=== PATIENT | female | born 1970 | race Caucasian/White ===

== ENCOUNTER → 2016-11-26 | Outpatient (CLI) | payer BC, SELFPAY ==
[~2016-11-26] MED LIST: MOTRIN-DPS400 MG PO; PERCOCET 5 DPS1 TAB PO; SENOKOT S1 TAB PO
== END | disposition home or self-care (01) ==
LOC: PTH.S 08:57
DX: Z01.818 Encounter for other preprocedural examination (principal)

== ENCOUNTER 2016-12-01 05:38 | Observation (INO) | payer BC, SELFPAY ==
[~2016-12-01] VITALS: Ht 154.9 cm; Wt 64.6 kg
[2016-12-03] MEDS ORDERED: SENOKOT S1 TAB PO (10:56)
[2016-12-03] MEDS ORDERED: PERCOCET 5 DPS1 TAB PO (10:56)
[2016-12-03] MEDS ORDERED: MOTRIN-DPS400 MG PO (10:56)
--- NOTE | 2016-12-16 12:52 | OR ---
ADMIT: 12/01/2016 RM/LOC: [address] [facility] MR#: [id number] [address] [id number] [address] [place] [address] Operative/Delivery Room Report SEX: F AGE: 46 : 1970 SURGERY DATE: 12/01/2016 SURGEON: Yordan Jackson MD MATE FOURTH: Dorota Andrew MD PROCEDURE PERFORMED: Vaginal hysterectomy with enterocele obliteration and bilateral salpingo-oophorectomy vaginally. 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 DESCRIPTION OF PROCEDURE: The patient was taken to the operating room under general anesthesia, prepped and draped in usual manner. Placed in pigtail stirrups. Bladder was drained with a Sparks catheter. The cervix was grasped with Almanza tenaculum and noted to pull down to beyond the introitus with ease. Circular incision made around the cervix with bladder reflection entering into the posterior cul-de-sac. Uterosacral ligaments were cross clamped, incised, and ligated followed by cross-clamping the cardinal ligament area with incision ligation. Must mention, there was a slight tenting upward in a V-shape pattern when cutting the anterior part of the vaginal mucosa on the initial cut around the cervix. This was to remove some of the excess vaginal mucosa in this area. The anterior cul-de-sac was entered. After the peritoneal reflection was identified, the cardinal vessels were clamped, incised, and ligated followed by cross-clamping the uterine vessels with incision ligation. Upper aspect of broad ligament was cross clamped, incised, and ligated. The posterior aspect of the uterine fundus was grasped with a single-tooth tenaculum. Then, uterus was removed after cross-clamping the tube utero-ovarian and round ligament structures, then tying them with incisional ligation with a stick-tie. The infundibulopelvic ligaments were then identified with removing the tube and ovary with cross-clamping the infundibulopelvic ligament and clamping it with incisional ligation with a stick tie. Adequate hemostasis was present. The pelvic peritoneum then was evaluated and the posterior cul-de-sac peritoneum was mobilized upward between the uterosacral ligament and posterior vaginal fascia. The pursestring suture of 0 Vicryl then was used to close the peritoneum in a running fashion going to the uterosacral ligament in a high fashion, then placing the suture retroperitoneal and going up to the apex of the tissue between the posterior cul-de-sac peritoneum that had been mobilized upward and the vaginal fascia. A suture was placed in this area in two different bites and brought out through the uterosacral ligament area on the right side and then finished closure. Then, using a #1 Tycron suture, the uterosacral ligament and posterior vaginal fascia was sutured in a simple stitch connecting the uterosacral ligaments and ADMIT: 12/01/2016 RM/LOC: [address] [facility] MR#: [id number] [place] [id number] [place] [address] Operative/Delivery Room Report SEX: F AGE: 46 : 1970 the apex of the vaginal dissection in this fashion. The uterosacral ligaments were stick tied to the vaginal mucosa. Small wedge of tissue was removed from the posterior vagina that involved the excess tissue that covered the enterocele. The vagina then was closed using interrupted sutures in the anterior aspect for two sutures and then closing transversely the remainder of the vagina with the final closure accomplished using the pelvic peritoneal closure stitch anchoring this to the vaginal mucosa to obliterate space at elevation the apex of the vagina. Evaluation of the posterior vagina revealed some minimal weakness right at the opening of the vagina, but no significant weakness and no repair was done. The vagina was packed with iodoform gauze and the procedure terminated. The patient left the operating room in satisfactory condition. She lost approximately 100 mL of blood. Yordan Jackson MD/ sanjay JOB #: [id number] CC: Yordan Jackson, Attending Physician NO FAMILY PHYSICIAN, Family Physician
== END 2016-12-02 12:45 | disposition home or self-care (01) ==
LOC: WOR 05:38 → 6PED 08:57
PROVIDERS: ADMIT Obstetrics & Gynecology
PROC: 0UTC7ZZ Resection of Cervix, Via Natural or Artificial Opening (ICD-10-PCS; principal; 2016-12-01)
PROC: 0UT97ZZ Resection of Uterus, Via Natural or Artificial Opening (ICD-10-PCS; principal; 2016-12-01)
PROC: 0UB77ZZ Excision of Bilateral Fallopian Tubes, Via Natural or Artificial Opening (ICD-10-PCS; principal; 2016-12-01)
PROC: 0UB27ZZ Excision of Bilateral Ovaries, Via Natural or Artificial Opening (ICD-10-PCS; principal; 2016-12-01)
DX: N81.2 Incomplete uterovaginal prolapse (principal); N80.0 Endometriosis of uterus; F17.210 Nicotine dependence, cigarettes, uncomplicated; E78.00 Pure hypercholesterolemia, unspecified; H61.21 Impacted cerumen, right ear; E78.5 Hyperlipidemia, unspecified; Z83.3 Family history of diabetes mellitus; Z88.0 Allergy status to penicillin; Z88.8 Allergy status to other drugs, medicaments and biological substances; Z79.899 Other long term (current) drug therapy